=== PATIENT | female | born 1980 | race Asian ===

== ENCOUNTER 2017-12-04 16:07 | Emergency (ER) | payer SELFPAY ==
[2017-12-04] MEDS ORDERED: Aspirin 81 MG Tab.Chew PO ONE (16:19)
--- NOTE | 2017-12-04 16:46 | EDM.PDOC ---
ED HPI GENERAL MEDICAL PROBLEM - General Stated Complaint: CHEST PAIN [id number] Time Seen by Provider: 12/04/17 16:30 Source of Information: Reports: Patient History Limitations: Reports: No Limitations - History of Present Illness INITIAL COMMENTS - FREE TEXT/NARRATIVE: This 37 yo female patient was brought to the ED by her coworker due to chest pain. The patient reports her chest pains started at about 1230 today. The patient reports her pain came and went. The patient reports her pain was a squeezing in her chest. The patient reports she does not have any pain at this time. The patient reports she had a surgical history of a lumpectomy, but no additional surgeries. The patient reports she is only one medication and does not have a history of cardiac problems. Onset: Today Onset Date: 12/04/17 Onset Time: 12:30 Duration: Resolved Prior to Arrival Location: Reports: Chest Quality: Reports: Ache, Pressure Severity: Moderate Improves with: Reports: None Worsens with: Reports: None Associated Symptoms: Reports: Chest Pain Chest Pain Score (Numeric/FACES): 1 - Related Data Allergies Allergy/AdvReac Type Severity Reaction Status Date / Time No Known Allergies Allergy Verified 12/04/17 16:21 Home Meds: Home Meds Control 1 tab PO DAILY 12/04/17 [History] Lisinopril 30 mg PO DAILY 12/04/17 [History] Multivitamin [Multivitamins] 1 tab PO DAILY 12/04/17 [History] Past Medical History Cardiovascular History: Reports: Hypertension Social & Family History - Tobacco Use Smoking Status *Q: Never Smoker - Recreational Drug Use Recreational Drug Use: No ED ROS GENERAL - Review of Systems Review Of Systems: ROS reveals no pertinent complaints other than HPI. ED EXAM, GENERAL - Physical Exam Exam: See Below Exam Limited By: No Limitations General Appearance: Alert, WD/WN, Anxious, Moderate Distress Eye Exam: Bilateral Eye: EOMI, Normal Inspection, PERRL Ears: Normal External Exam, Normal Canal, Hearing Grossly Normal, Normal TMs Nose: Normal Inspection, Normal Mucosa, No Blood Throat/Mouth: Normal Inspection, Normal Lips, Normal Teeth, Normal Gums, Normal Oropharynx, Normal Voice, No Airway Compromise Head: Atraumatic, Normocephalic Neck: Normal Inspection, Supple, Non-Tender, Full Range of Motion Respiratory/Chest: No Respiratory Distress, Lungs Clear, Normal Breath Sounds, No Accessory Muscle Use, Chest Non-Tender Cardiovascular: Normal Peripheral Pulses, Regular Rate, Rhythm, No Edema, No Gallop, No JVD, No Murmur, No Rub GI/Abdominal: Normal Bowel Sounds, Soft, Non-Tender, No Organomegaly, No Distention, No Abnormal Bruit, No Mass (Female) Exam: Deferred Rectal (Female) Exam: Deferred Back Exam: Normal Inspection, Full Range of Motion, NT Extremities: Normal Inspection, Normal Range of Motion, Non-Tender, Normal Capillary Refill, No Pedal Edema Neurological: Alert, Oriented, CN II-XII Intact, Normal Cognition, Normal Gait, Normal Reflexes, No Motor/Sensory Deficits Psychiatric: Normal Affect, Normal Mood Skin Exam: Warm, Dry, Intact, Normal Color, No Rash Lymphatic: No Adenopathy Course - Vital Signs Last Recorded V/S: Last Vital Signs Temp 36.9 C 12/04/17 16:22 Pulse 79 12/04/17 16:22 Resp 16 12/04/17 16:22 BP 161/76 H 12/04/17 16:22 Pulse Ox 99 12/04/17 16:22 - Orders/Labs/Meds Orders: Active Orders 24 hr Category Date Time Status EKG Documentation Completion [RC] URGENT Care 12/04/17 16:16 Active Chest 1V Frontal [CR] Urgent Exams 12/04/17 16:18 Taken Labs: Laboratory Tests 12/04/17 12/04/17 Range/Units 16:36 16:36 WBC 7.8 (5.0-10.0) 10^3/uL RBC 3.91 L (4.2-5.4) 10^6/uL Hgb 12.3 (12.0-16.0) g/dL Hct 36.5 L (37.0-47.0) % MCV 93.4 (80-100) fL MCH 31.5 (27.0-34.0) pg MCHC 33.7 (33.0-35.0) g/dL Plt Count 307 (150-450) 10^3/uL Neut % (Auto) 50.9 (42.2-75.2) % Lymph % (Auto) 40.2 (20.5-50.1) % [place] % (Auto) 7.3 (2-8) % Eos % (Auto) 1.3 (1.0-3.0) % Baso % (Auto) 0.3 (0.0-1.0) % Sodium 137 (135-145) mmol/L Potassium 3.4 L (3.6-5.0) mmol/L Chloride 106 (101-111) mmol/L Carbon Dioxide 23.0 (21.0-31.0) mmol/L Anion Gap 11.4 BUN 17 (7-18) mg/dL Creatinine 0.8 (0.6-1.3) mg/dL Est Cr Clr Drug Dosing 74.67 mL/min Estimated GFR (MDRD) > 60 BUN/Creatinine Ratio 21.25 Glucose 89 (74-105) mg/dL Calcium 9.7 (8.4-10.2) mg/dl Total Bilirubin 0.6 (0.2-1.0) mg/dL AST 29 (10-42) IU/L ALT 26 (10-60) IU/L Alkaline Phosphatase 66 (42-121) IU/L Troponin I < 0.02 (0.00-0.02) ng/ml Total Protein 7.3 (6.7-8.2) g/dl Albumin 4.1 (3.2-5.5) g/dl Globulin 3.2 Albumin/Globulin Ratio 1.28 Meds: Medications Discontinued Medications Generic Name Dose Route Start Last Admin Trade Name Freq PRN Reason Stop Dose Admin Aspirin 324 mg 12/04/17 16:19 12/04/17 16:31 Aspirin PO 12/04/17 16:20 324 mg ONETIME ONE Administration Lorazepam 0.5 mg 12/04/17 17:26 12/04/17 17:40 Ativan PO 12/04/17 17:27 0.5 mg ONETIME ONE Administration - Re-Assessments/Exams Free Text/Narrative Re-Assessment/Exam: 12/04/17 17:31 The patient was advised of the examination, lab, EKG and x-ray results during the visit. The patient was relieved with the results. The patient was given an oral dose of Ativan (0.5 mg) for anxiety. Departure - Departure Time of Disposition: 18:03 Disposition: Home, Self-Care 01 Condition: Fair Clinical Impression: Nonspecific chest pain Instructions: Nonspecific Chest Pain, [id number] Care Plan Goals: The patient was advised of the examination, lab, EKG and x-ray results during the visit. The patient was given a dose of Aspirin and a small dose of Ativan while in the ED. The patient was encouraged to follow-up with her primary care facility for continued evaluation (stress test) and treatment. If the patient has any additional symptoms or concerns, the patient should visit her primary care facility or return to the ED. - My Orders Last 24 Hours: My Active Orders 12/04/17 16:16 EKG Documentation Completion [RC] URGENT 12/04/17 16:18 Chest 1V Frontal [CR] Urgent - Assessment/Plan Last 24 Hours: My Active Orders 12/04/17 16:16 EKG Documentation Completion [RC] URGENT 12/04/17 16:18 Chest 1V Frontal [CR] Urgent
[2017-12-04 17:01] LABS: CHLORIDE,CL 106 mmol/L (101-111); SODIUM,NA 137 mmol/L (135-145)
[2017-12-04] MEDS ORDERED: LORazepam 0.5 MG Tab PO ONE (17:26)
== END 2017-12-04 18:07 | disposition home or self-care (01) ==
LOC: DL.ED 16:07
DX: R07.9 Chest pain, unspecified (principal); I10 Essential (primary) hypertension
CPT/HCPCS: 36415; 71045; 80053; 84484; 85025; 93005; 99285; A9270; 93010; 99283